=== PATIENT | female | born 1990 | race Asian ===

== ENCOUNTER 2018-02-01 13:51 | Emergency (ER) | payer OTHER ==
[2018-02-01 17:20] LABS: URINE BLOOD (Dip) POC Negative (NEGATIVE); URINE GLUCOSE (Dip) POC Negative (NEGATIVE); URINE KETONES (Dip) POC 2+ (NEGATIVE); URINE LEUKOCYTE EST (Dip) POC Negative (NEGATIVE); URINE NITRITE (Dip) POC Negative (NEGATIVE); URINE TOTAL PROTEIN POC 1+ (NEGATIVE)
[2018-02-01 17:20] LABS: URINE PH (Dip) POC 7.5 (5.0-8.5)
== END 2018-02-01 17:47 | disposition home or self-care (01) ==
LOC: FTE 13:51
DX: R10.30 Lower abdominal pain, unspecified (principal)
CPT/HCPCS: 81003; 81025; 99283